=== PATIENT | male | born 1970 | race Caucasian/White ===

== ENCOUNTER 2022-08-27 21:14 | Emergency (ER) | payer MEDICAID, OTHER ==
[~2022-08-27] VITALS: Ht 177.8 cm; Wt 72.6 kg
[2022-08-27 21:20] VITALS: BP 151/82
--- NOTE | 2022-08-27 21:23 | NUR ---
PT KATHY BLS. TAKEN TO BED 5
--- NOTE | 2022-08-27 21:24 | NUR ---
Patient BIB by [facility] from [place]. C/O Suicidal Ideation x today. Patient states " I want to kill myself, I planned to jump to car." Patient denies pain this time. PMHx: PTSD, Schizophrenia, Depression
--- NOTE | 2022-08-27 21:28 | NUR ---
Dr. Lucas examining patient.
--- NOTE | 2022-08-27 21:34 | NUR ---
Removed clothes and belonging, Wand/Metal detector, removed all beside equipments as safety checklist protocol.
--- NOTE | 2022-08-27 21:35 | NUR ---
Blood for labwork drawn by distributor sales manager Patient tolerated well.
--- NOTE | 2022-08-27 21:40 | NUR ---
COVID-19 (bob) swab collected and sent to lab.
[2022-08-27 21:45] LABS: BASOPHILS % (AUTO) 0.4 % (0.0-2.0); EOSINOPHILS % (AUTO) 0.2 % (0.0-4.0); HEMATOCRIT 41.6 % (36-52); HEMOGLOBIN 14.3 g/dL (12.0-18.0); LYMPHOCYTES # (AUTO) 1.2 K/uL (2.0-11.5); LYMPHOCYTES % (AUTO) 13.7 % (20.5-51.1); MEAN CORPUSCULAR HEMOGLOBIN 32 pg (27-31); MEAN CORPUSCULAR HGB CONC 34 g/dL (33-37); MEAN CORPUSCULAR VOLUME 91.7 fL (80-94); MONOCYTES # (AUTO) 0.5 K/uL (0.8-1.0); MONOCYTES % (AUTO) 5.9 % (1.7-9.3); NEUTROPHILS # (AUTO) 6.9 K/uL (1.8-7.7); NEUTROPHILS % (AUTO) 79.8 % (42.2-75.2); PLATELET COUNT (AUTO) 147 K/uL (140-450); RED BLOOD CELL COUNT(AUTO) 4.54 MIL/uL (4.20-6.10); RED CELL DISTRIBUTION WIDTH 14.4 % (11.6-13.7); WHITE BLOOD COUNT (AUTO) 8.6 K/uL (4.8-10.8)
[2022-08-27 22:04] LABS: ANION GAP 9.4 (8-16); ASPARTATE AMINOTRANSFERASE 76 U/L (15-37); CARBON DIOXIDE 32.8 mmol/L (21-32); CHLORIDE 103 mmol/L (98-107); GFR ARICAN-AMERICAN 101 mL/min (>90); GLUCOSE 109 mg/dL (74-106); POTASSIUM 4.2 mmol/L (3.5-5.1); SALICYLATE 2.8 mg/dL (2.8-20.0); SODIUM SERUM 141 mmol/L (136-145); TOTAL BILIRUBIN 0.4 mg/dL (0.0-1.0); UREA NITROGEN, BLOOD 13 mg/dL (7-18)
[2022-08-27 22:36] LABS: ACETAMINOPHEN < 0.5 ug/ml (10-30)
--- NOTE | 2022-08-27 22:45 | NUR ---
COVID-19 (BRYN) swab collected and sent to lab.
--- NOTE | 2022-08-27 23:24 | NUR ---
Provided water, patient reported, can not provide urine sample this time.
[2022-08-27] MEDS ORDERED: OLANZapine 5 MG ODT SL ONE (23:30)
--- NOTE | 2022-08-28 00:30 | NUR ---
Patient appears to be resting comfortably in bed. Vital Signs within normal limits. Respirations even and unlabored.
--- NOTE | 2022-08-28 02:01 | NUR ---
Urine sample collected and sent to lab.
--- NOTE | 2022-08-28 02:10 | NUR ---
Given Sanwiches and Juice as request. Addendum: 08/28/22 at 0212 by [email or web address] Given Sandwiches and Juice as request.
[2022-08-28 02:26] LABS: BENZODIAZEPINE, URINE POSITIVE ng/mL (NEG <=200); CANNABINOID, URINE POSITIVE ng/mL (NEG <=50)
[2022-08-28 02:27] LABS: BARBITURATE, URINE NEGATIVE ng/ml (NEG <=200); COCAINE, URINE NEGATIVE ng/mL (NEG <=300); OPIATE, URINE NEGATIVE ng/mL (NEG <=2000); PHENCYCLIDINE SCREEN,URINE NEGATIVE ng/mL (NEG <=25)
[2022-08-28] MEDS ORDERED: QUEtiapine FUMARATE 100 MG TAB PO ONE (03:05)
--- NOTE | 2022-08-28 04:11 | NUR ---
Patient appears to be resting comfortably in bed. Vital Signs within normal limits. Respirations even and unlabored.
--- NOTE | 2022-08-28 04:25 | NUR ---
Patient closed his eyes. Patient appears to be resting comfortably in bed. Respirations even and unlabored.
--- NOTE | 2022-08-28 06:11 | NUR ---
Patient closed his eyes. Patient appears to be resting comfortably in bed. Respirations even and unlabored.
--- NOTE | 2022-08-28 07:21 | NUR ---
Report given to MUKESH Watson and endorse care of patient.
--- NOTE | 2022-08-28 08:16 | NUR ---
BREAKFAST IS OFFERED BEDSIDE BUT PT STILL SLEEPING.
--- NOTE | 2022-08-28 08:32 | NUR ---
Packet faxed to: Carlito Francois [facility]
--- NOTE | 2022-08-28 08:44 | NUR ---
FLAKITA /NANNETTE HAYDEN CALLED AND ACCEPTED THIS PT: ROOM 2B. UNDER DR. ALVAREZ NO NEEDS OTHER REPORT UNLESS ANY CHANGE OR UPDATE.
--- NOTE | 2022-08-28 10:00 | NUR ---
NANNETTE HAYDEN CANCELD ADMISSION DUE TO BED UNAVALABLE.
--- NOTE | 2022-08-28 12:01 | NUR ---
PATIENT BEING EVALUATED BY DR. TRAN, PSYCHIATRIST, VIA TELEPSYCH.
--- NOTE | 2022-08-28 14:41 | NUR ---
PT UPSET WAITING FOR SNACKS HE REQUESTED. NOTED LUNCH TRAY CONSUMED 100% AND PT SAYS "THISIS FUCKING BULLSHIT WAITING FOR SNACKS"
[2022-08-28] MEDS: QUEtiapine FUMARATE 100 MG TAB PO SCH ×2 (17:00→17:15)
--- NOTE | 2022-08-28 17:21 | NUR ---
PT REFUSED SERAQUAL PO.
--- NOTE | 2022-08-28 17:55 | NUR ---
DINNER TRAY DELIVERED TO PT. PT IS EATING.
--- NOTE | 2022-08-28 19:31 | NUR ---
REPORT RECEIVED FROM OUTGOING RN FOR CONTINUITY OF CARE.
--- NOTE | 2022-08-28 19:32 | NUR ---
PATIENT CONSUMED 100% OF DINNER TRAY. REQUESTING ADDITIONAL SNACKS, PROVIDED.
[2022-08-28] MEDS ORDERED: LORazepam 1 MG TAB PO ONE (22:00)
--- NOTE | 2022-08-29 00:48 | NUR ---
PATIENT REMAINS RESTLESS. REFRESHMENTS PROVIDED. ENVIRONMENTAL SAFETY CHECK COMPLETE.
--- NOTE | 2022-08-29 06:59 | NUR ---
PATIENT REQUESTING "SOMEONE TO TALK TO SO I CAN GET THE HELL OUT OF HERE". RN EDUCATED PATIENT ON NECESSITY OF 5150. PATIENT DID NOT VERBALIZE UNDERSTANDING.
--- NOTE | 2022-08-29 07:18 | NUR ---
REPORT GIVEN TO INCOMING RN FOR CONTINUITY OF CARE. ALL CARES ENDORSED.
--- NOTE | 2022-08-29 07:20 | NUR ---
REPORT RECEIVED FROM RAHEEL MAYORGA. ASSUMED CARE AT THIS TIME
--- NOTE | 2022-08-29 07:37 | NUR ---
pt provided w/ breakfast. pt in view, awake and eating in bed
[2022-08-29] MEDS: SERTRALINE 50 MG TAB PO SCH (09:06)
--- NOTE | 2022-08-29 09:25 | NUR ---
[facility] still working on placement at this time.
[2022-08-29] MEDS ORDERED: LORazepam 2 MG/ML VIAL IM/IVP STA (10:38)
[2022-08-29] MEDS ORDERED: HALOPERIDOL IM 5 MG/ML VIAL IM ONE (10:40)
[2022-08-29] MEDS ORDERED: diphenhydrAMINE 50 MG/ML VIAL IM ONE (10:40)
--- NOTE | 2022-08-29 11:00 | NUR ---
PT BECOMING INCREASINGLY AGITATED, SPITTING AND AGGRESSIVE, THREATENING STAFF. VERBAL DE-ESCALATION UNSUCCESSFUL. DR PALOMARES AT BEDSIDE EXPLAINING 1703 STATUS/PLAN OF CARE.
--- NOTE | 2022-08-29 11:58 | NUR ---
pt provided w/ lunch. pt awake and eating in bed.
--- NOTE | 2022-08-29 13:12 | NUR ---
pt at rest w/ eyes closed. in view. respirations even and unlabored.
--- NOTE | 2022-08-29 18:56 | NUR ---
pr provided w/ dinner. pt awake and eating inbed
[2022-08-29] MEDS: QUEtiapine FUMARATE 100 MG TAB PO SCH (19:02)
--- NOTE | 2022-08-29 19:28 | NUR ---
REPORT GIVEN TO AJ MAYORGA. TRANSFER OF CARE AT THIS TIME
--- NOTE | 2022-08-29 19:30 | NUR ---
Note undone in [facility] - 08/30/22 at 0039 by [email or web address] Patient resting in bed, A/Ox4, chest rise and fall symmetrical, no c/o pain or s/s of distress, all belongings accounted for and removed. Patient is on 51/50 hold. Patient finished eating dinner. Addendum: 08/29/22 at 2157 by [email or web address] Amendment undone in [facility] - 08/30/22 at 0039 by [email or web address] Patient resting in bed, A/Ox4, chest rise and fall symmetrical, no c/o pain or s/s of distress, all belongings accounted for and removed. Patient is on 1:1, 5150 hold. Patient finished eating dinner.
--- NOTE | 2022-08-29 19:31 | NUR ---
Patient resting in bed, A/Ox4, chest rise and fall symmetrical, no c/o pain or s/s of distress, all belongings accounted for and removed. Patient is on 1:1, 5150 hold. Patient currently denies SI/HI. Patient finished eating dinner. Patient offered fluids and toileting, patient declined both.
--- NOTE | 2022-08-29 20:09 | NUR ---
Patient packet faxed out to [facility] Refugio [facility], Dixon Wilks, Jairo vasquez, Regulo Serrato, [place], [facility]. [facility] - [facility]
--- NOTE | 2022-08-29 20:38 | NUR ---
[place] transfer knitter called and asked about patient behavior. [place] transfer knitter notified and verbalized understanding.
--- NOTE | 2022-08-29 21:30 | NUR ---
Patient resting in bed, A/Ox4, chest rise and fall symmetrical, no c/o pain or s/s of distress, all belongings accounted for and removed. Patient is on 1: 5150 hold. Addendum: 08/30/22 at 0040 by [email or web address] Amendment undone in ED - 08/30/22 at 0041 by [email or web address] Patient resting in bed, A/Ox4, chest rise and fall symmetrical, no c/o pain or s/s of distress, all belongings accounted for and removed. Patient is on 1: 5150 hold. Patient currently denies SI/HI. Patient finished eating dinner. Patient offered fluids and toileting, patient declined both. Addendum: 08/30/22 at 004 by [email or web address] Patient resting in bed, A/Ox4, chest rise and fall symmetrical, no c/o pain or s/s of distress, all belongings accounted for and removed. Patient is on 1:1, 5150 hold. Patient currently denies SI/HI. Patient offered fluids and toileting, patient declined both.
--- NOTE | 2022-08-29 23:10 | NUR ---
Patient resting in bed, A/Ox4, chest rise and fall symmetrical, no c/o pain or s/s of distress, all belongings accounted for and removed. Patient is on 51/50 hold. Addendum: 08/30/22 at 0040 by [email or web address] Amendment undone in ED - 08/30/22 at 0041 by [email or web address] Patient resting in bed, A/Ox4, chest rise and fall symmetrical, no c/o pain or s/s of distress, all belongings accounted for and removed. Patient is on 1:1, 5150 hold. Patient currently denies SI/HI. Patient finished eating dinner. Patient offered fluids and toileting, patient declined both. Addendum: 08/30/22 at 004 by [email or web address] Patient resting in bed, A/Ox4, chest rise and fall symmetrical, no c/o pain or s/s of distress, all belongings accounted for and removed. Patient is on 1:1, 5150 hold. Patient currently denies SI/HI. Patient offered fluids and toileting, patient declined both.
--- NOTE | 2022-08-30 00:31 | NUR ---
Patient resting in bed, A/Ox4, chest rise and fall symmetrical, no c/o pain or s/s of distress, all belongings accounted for and removed. Patient is on hold. Addendum: 08/30/22 at 0040 by [email or web address] Patient resting in bed, A/Ox4, chest rise and fall symmetrical, no c/o pain or s/s of distress, all belongings accounted for and removed. Patient is on 1:1, 5150 hold. Patient currently denies SI/HI. Patient offered fluids and toileting, patient declined both.
--- NOTE | 2022-08-30 02:25 | NUR ---
Patient resting in bed, A/Ox4, chest rise and fall symmetrical, no c/o pain or s/s of distress, all belongings accounted for and removed. Patient is on 1:1, 5150 hold. Patient currently denies SI/HI. Patient offered fluids and toileting, patient declined both.
--- NOTE | 2022-08-30 07:26 | NUR ---
Change of shift report given to AM shift Nurse Clare MAYORGA. AM shift Nurse Clare MAYORGA verbalized understanding of report, no further questions.
--- NOTE | 2022-08-30 08:41 | NUR ---
PT BEING EVALUATED BY TELEPSYCH AT THIS TIME
--- NOTE | 2022-08-30 08:41 | NUR ---
ON ZOOM WITH PSYCHIATRIST
--- NOTE | 2022-08-30 08:45 | NUR ---
PSYCHIATRIST STATES WILL DC HOME.
[2022-08-30] MEDS: SERTRALINE 50 MG TAB PO SCH (09:00)
--- NOTE | 2022-08-30 09:17 | NUR ---
PT BEING DC HOME. MENTAL HEALTH RESOURCES GIVEN TO PT. PT REFUSED RIDE. PT STABLE ON DC
[2022-08-30 09:18] VITALS: BP 122/79
== END 2022-08-30 09:18 | disposition home or self-care (01) ==
LOC: MED 21:14
DX: R45.851 Suicidal ideations (principal); Z20.822 Contact with and (suspected) exposure to COVID-19; F20.9 Schizophrenia, unspecified; F32.A Depression, unspecified; F43.10 Post-traumatic stress disorder, unspecified
CPT/HCPCS: 36415; 80053; 80305; 82550; 82553; 85025; 87426; 87635; 96372; 99285; C9803; G0480; G0482; J1200; J1630; J2060; U0005